=== PATIENT | female | born 1980 | race Caucasian/White ===

== ENCOUNTER → 2017-09-05 | Emergency (ER) | payer OTHER ==
[2017-09-05 14:50] VITALS: BP 97/62
--- NOTE | 2017-09-05 15:08 | EDPHY ---
H & P Stated Complaint: Surg on R foot 08/19. Cast got wet;her surg said go to ED for new one Time Seen by Provider: 09/05/17 15:07 HPI/ROS: HPI: This is a 37-year-old female who presents with Chief Complaint: Surg on R foot 08/19. Cast got wet;her surg said go to ED for new one Location: Right foot Quality: Cast wet Duration: Today Signs and Symptoms: No bleeding, no radiation, no numbness, no weakness, no tingling, no incontinence, no decreased range of motion, no swelling, no pain, no fever Timing: Severity: Context: Denies LOC/head injury/neck pain/dizziness/nausea/vomiting/amnesia. Modifying Factors: Comment: ROS: see HPI Constitutional: No fever, no chills, no weight loss Eyes: No blurred vision Respiratory: No shortness of breath, no cough Cardiovascular: No chest pain Gastrointestinal: No nausea, no vomiting no diarrhea Genitourinary: No dysuria Extremities: No myalgias Neurologic: No weakness, no numbness Skin: No rashes Hematologic: No bruising, no bleeding MEDICAL/SURGICAL/SOCIAL HISTORY: Medical history: Rheumatoid arthritis Surgical history: Denies Social history: CONSTITUTIONAL: awake and alert, no obvious distress HEENT: Atraumatic and normocephalic, PERRL, EOMI. Nares patent; no rhinorrhea; no nasal mucosal edema. Tympanic membranes clear. Oropharynx clear, no exudate and moist pink mucosa. Airway patent. No lymphadenopathy. No meningismus. Cardiovascular: Normal S1/S2, regular rate, regular rhythm, without murmur rub or gallop. PULMONARY/CHEST: Symmetrical and nontender. Clear to auscultation bilaterally. Good air movement. No accessory muscle usage. ABDOMEN: Soft, nondistended, nontender, no rebound, no guarding, no peritoneal signs, no masses or organomegaly. No CVAT. EXTREMITIES: 2/2 pulses, strength 5/5, no deformities, no clubbing, no cyanosis or edema. NEUROLOGICAL: no focal neuro deficits. GCS 15. SKIN: Warm and dry, no erythema. no rash. Good capillary refill. Source: Patient Exam Limitations: No limitations - Personal History LMP (Females 10-55): 15-21 Days Ago Current Tetanus Diphtheria and Acellular Pertussis (TDAP): Yes - Medical/Surgical History Other PMH: RA - Social History Smoking Status: Never smoked Constitutional: Initial Vital Signs Temperature (C) 36.7 C 09/05/17 14:47 Heart Rate 88 09/05/17 14:47 Respiratory Rate 18 09/05/17 14:47 Blood Pressure 97/62 L 09/05/17 14:47 O2 Sat (%) 98 09/05/17 14:47 O2 Delivery Mode Room Air Allergies/Adverse Reactions: adalimumab [From Humira] Allergy (Intermediate, Verified 09/05/17 14:52) SOB methotrexate Allergy (Intermediate, Verified 09/05/17 14:52) hives, SOB sulfamethoxazole [From Bactrim] Allergy (Intermediate, Verified 09/05/17 14:52) hives, SOB trimethoprim [From Bactrim] Allergy (Intermediate, Verified 09/05/17 14:52) hives, SOB larencia Allergy (Intermediate, Uncoded 09/05/17 14:52) SOB Home Medications: Medication Instructions Recorded Aspirin [Aspirin 325 mg (*)] 325 mg PO DAILY 09/05/17 Certolizumab Pegol [Cimzia] 400 mg SQ 09/05/17 HYDROmorphone HCL [Dilaudid 2 mg 2 mg PO 09/05/17 (*)]
== END | disposition left against medical advice (07) ==
DX: Z53.21 Procedure and treatment not carried out due to patient leaving prior to being seen by health care provider (principal)